=== PATIENT | male | born 1965 | race Caucasian/White ===

== ENCOUNTER → 2019-08-15 | Outpatient (CLI) | payer OTHER | END | disposition home or self-care (01) | LOC: LABWHC1 11:19 | PROVIDERS: ATTEND Physical Medicine & Rehabilitation | DX: M51.17 Intervertebral disc disorders with radiculopathy, lumbosacral region (principal); M47.817 Spondylosis without myelopathy or radiculopathy, lumbosacral region; M75.41 Impingement syndrome of right shoulder; M19.011 Primary osteoarthritis, right shoulder; M19.041 Primary osteoarthritis, right hand; M19.042 Primary osteoarthritis, left hand; G56.23 Lesion of ulnar nerve, bilateral upper limbs; M25.562 Pain in left knee; M25.511 Pain in right shoulder; M25.362 Other instability, left knee; M54.5 Low back pain; R20.2 Paresthesia of skin | CPT/HCPCS: 36415; 84402; 84403 ==

== ENCOUNTER → 2021-10-28 | Outpatient (CLI) | payer OTHER ==
[2021-10-28 12:28] LABS: Appearance,Urine Clear (Clear); Bilirubin,Urine Negative (Negative); Blood,Urine Negative (Negative); Color,Urine Yellow; Glucose,Urine (UA) Negative (Negative); Ketones,Urine Negative (Negative); Leukocyte Esterase,Urine Negative (Negative); Nitrite,Urine Negative (Negative); Protein,Urine Negative (Negative); Specific Gravity,Urine 1.013 (1.001-1.035); Urobilinogen,Urine <2.0 mg/dL (<2.0)
[2021-10-28 12:34] LABS: Basophils % (A) 1 %; Eosinophils # (A) 0.1 k/uL (0-0.7); Eosinophils % (A) 2 %; HCT 44.6 % (39.0-53.0); HGB 15.1 gm/dL (13.0-17.5); Lymphocytes # (A) 1.7 k/uL (1.0-4.8); Lymphocytes % (A) 31 %; MCHC 33.8 g/dL (31.0-37.0); MCV 97.7 fL (80.0-100.0); Mean Platelet Volume 7.7; Monocytes # (A) 0.4 k/uL (0-1.0); Monocytes % (A) 7 %; Neutrophils % (A) 57 %; Platelet Count 254 k/uL (150-450); RBC 4.57 m/uL (4.30-5.90); WBC 5.3 k/uL (3.8-10.6)
[2021-10-28 12:51] LABS: ALT 17 U/L (4-49); AST 19 U/L (17-59); African American GFR (CKD) >90 (>60 ml/min/1.73 sqM); Albumin 4.4 g/dL (3.5-5.0); Alkaline Phosphatase 57 U/L (38-126); Anion Gap 9 mmol/L; Blood Urea Nitrogen 12 mg/dL (9-20); Carbon Dioxide 30 mmol/L (22-30); Chloride 102 mmol/L (98-107); Glucose 103 mg/dL (74-99); Non-African American GFR(CKD) >90 (>60 ml/min/1.73 sqM); Potassium 4.2 mmol/L (3.5-5.1); Prothrombin Time 10.4 sec (9.0-12.0); Sodium 141 mmol/L (137-145); Total Bilirubin 0.4 mg/dL (0.2-1.3); Total Protein 7.1 g/dL (6.3-8.2)
== END | disposition home or self-care (01) ==
LOC: LABWHC1 11:41
PROVIDERS: ATTEND Orthopaedic Surgery Orthopaedic Surgery of the Spine
DX: Z01.812 Encounter for preprocedural laboratory examination (principal); M51.36 Other intervertebral disc degeneration, lumbar region; M48.00 Spinal stenosis, site unspecified
CPT/HCPCS: 80053; 81003; 85025; 85610; 85730; 87070; 93005

== ENCOUNTER → 2021-10-29 | Outpatient (CLI) | payer OTHER ==
--- NOTE | 2021-10-29 09:53 | XR ---
EXAMINATION TYPE: XR chest 2V DATE OF EXAM: 10/29/2021 COMPARISON: NONE TECHNIQUE: PA and lateral views submitted. HISTORY: Presurgical FINDINGS: The lungs are clear and there is no pneumothorax, pleural effusion, or focal pneumonia. Heart size normal. No overt failure. IMPRESSION: 1. No acute process.
== END | disposition home or self-care (01) ==
LOC: RADXRMAIN 08:03
PROVIDERS: ATTEND Orthopaedic Surgery Orthopaedic Surgery of the Spine
DX: Z01.818 Encounter for other preprocedural examination (principal)
CPT/HCPCS: 71046

== ENCOUNTER 2021-11-04 07:45 | Observation (INO) | payer OTHER ==
[2021-10-29 15:28] VITALS: BMI 23.6
[~2021-11-04 07:45] MED LIST: DEXAMETHASONE SOD PHOSPHATE 4 MG/ML 1 ML VIAL IV ONE; ONDANSETRON 4 MG/2 ML VIAL IVP ONE; ceFAZolin 1,000 MG in SODIUM CHLORIDE 0.9% IRRIGATIO 1,000 ML IRRIGATION PRN
[2021-11-04] MEDS ORDERED: LIDOCAINE 1% (10MG/ML) FOR IV START INTRADERMA ONE (08:26)
[2021-11-04] MEDS: LACTATED RINGERS 1,000 ML IV SCH ×2 (08:26→18:53)
[2021-11-04] MEDS ORDERED: ROCURONIUM 10 MG/ML (5 ML VIAL) IV ONE (09:55)
[2021-11-04] MEDS ORDERED: PROPOFOL 10 MG/ML 20 ML VIAL IV ONE (09:55)
[2021-11-04] MEDS ORDERED: MIDAZOLAM 2 MG/2 ML VIAL ONE (09:55)
[2021-11-04] MEDS ORDERED: PHENYLEPHRINE-0.9% NACL SYG 1,000 MCG/10 ML SYRINGE ONE (09:55)
[2021-11-04] MEDS ORDERED: SUCCINYLCHOLINE CHLORIDE 100 MG/5 ML SYR IV ONE (09:55)
[2021-11-04] MEDS ORDERED: HYDROmorphone (PF) 1 MG/ML ONE (09:55)
[2021-11-04] MEDS ORDERED: LIDOCAINE 1% INJ 10MG/ML (20 ML MDV) ONE (09:55)
[2021-11-04] MEDS ORDERED: fentaNYL (PF) 50 MCG/ML 2 ML AMP ONE (09:55)
[2021-11-04] MEDS ORDERED: THROMBIN (BOVINE) 5,000 UNIT VIAL TOPICAL ONE (09:59)
[2021-11-04] MEDS ORDERED: LIDOCAINE 0.5%-EPI 1:200,000 50 ML VIAL SQ ONE (09:59)
[2021-11-04] MEDS ORDERED: GELATIN SPONGE,ABSORB (LARGE) 1 EACH SPONGE TOPICAL ONE (09:59)
[2021-11-04] MEDS ORDERED: LACTATED RINGERS 1,000 ML IV ONE (10:35)
[2021-11-04] MEDS ORDERED: BENZOCAINE/MENTHOL LOZENG 1 EACH LOZENGE MUCOUS MEM PRN (12:51)
[2021-11-04] MEDS ORDERED: HYDROcodone/APAP 5-325MG 1 EACH TAB PO PRN (12:51)
[2021-11-04] MEDS ORDERED: HYDROmorphone 0.5 MG/0.5 ML SYRINGE IVP PRN (12:51)
[2021-11-04] MEDS ORDERED: ONDANSETRON 4 MG/2 ML VIAL IVP PRN (12:51)
[2021-11-04] MEDS: HYDROmorphone 0.5 MG/0.5 ML SYRINGE IVP PRN ×4 (13:02→14:00)
--- NOTE | 2021-11-04 13:03 | P.OP ---
Date of Procedure: 11/04/21 Preoperative Diagnosis: Degenerative disc disease L5-S1, history of laminectomy decompression L5-S1 with discectomy, recurrent stenosis L5-S1, low back pain, lower extremity radiculopathy Postoperative Diagnosis: Same Anesthesia: GETA Pathology: none sent Condition: stable Disposition: PACU Description of Procedure: DESCRIPTION OF PROCEDURE(S): BRIEF OPERATIVE NOTE Preoperative Diagnosis: Degenerative disc disease L5-S1, history of laminectomy decompression L5-S1 with discectomy, recurrent stenosis L5-S1, low back pain, lower extremity radiculopathy Postoperative Diagnosis: SameDegenerative disc disease L5-S1, history of laminectomy decompression L5-S1 with discectomy, recurrent stenosis L5-S1, low back pain, lower extremity radiculopathy Procedure: Revision Laminectomy and decompression L5-S1 Computer CT navigation aided Minimally invasive Posterior lateral decompression and facet fusion L5-S1 Minimally invasive Transforaminal lumbar interbody fusion for a 360 fusion L5-S1 Discectomy for decompression L5-S1 Placement of interbody graft L5-S1 Use of computer navigation for fusion Local autogenous bone grafting Aspiration of bone marrow from the vertebral body pedicle L5 on the right Use of bone graft extenders Surgeon: Dr. Cox Plant Breeder Scientist: Rafal BOBO who is present throughout the entire the case persistence during positioning, dissection, exposure, visualization, and all crucial elements of the case as well as closure. Anesthesia: General anesthesia per Dr. Dr. Montes De Oca Estimated blood loss: Approximately 100 mL Complications: None apparent Components implanted: K2M minimally invasive [place] pedicle screw system withscrews measuring 6.5 mm in diameter to rods one Clear interbody cage with 10 mL of osteo amp bio4 bone graft substitute and 30 mL of the BX bone fibers to supplement the local autogenous bone graft and bone marrow aspirate Disposition: To recovery room in good stable condition. OPERATIVE INDICATIONS The patient has had severe issues at their lower extremity in her lower back over the past year with significant worsening over the past several months. Over the past few months the patient had pain at their back and their lower extremities. The patient is having severe radicular symptoms at their lower extremity with weakness. The patient is having significant pain in their back. They are unable to obtain any comfort. In the past the patient had undergone a laminectomy with discectomy and decompression almost 10 years ago and had excellent results with that in terms of his lower extremities. He did very well over most of the decade but started having worsening of his back and his lower extremities and was found have advanced collapse and progressive height loss at L5-S1 with some recurrent stenosis on the neural foramen at L5-S1 bilaterally. He is having significant pain in his lower extremities worse on the right and left. We did aggressive conservative treatment with medications therapy and interventional pain management however thery were not having any relief. The patient also showed evidence of a listhesis with some dynamic instability. The patient has been through conservative treatment. We discussed various treatment options including surgery, and the patient wishes to proceed with surgery We discussed the risk, patient's alternatives and benefits of surgery including but not limited to, risk of bleeding risk of infection, risk of need for further surgery, risk of decreased, loss of motion, muscle function, malunion nonunion, hardware failure, nerve damage, paralysis, heart attack, blindness and . They understood issues with the current pandemic and the possibility of exposure. OPERATIVE SUMMARY After discussing all the risks, patient alternatives and benefits at length, the patient elected to proceed with surgical intervention, signed informed consent, and presented for their procedure. The patient was seen and examined in the preoperative holding area and the surgical site was marked. The patient was given antibiotics and brought to the operating room. The patient was sedated and intubated by anesthesia in standard fashion. The patient was positioned on to the operating room table in a prone position on the appropriate frame which was well-padded and well molded. We were careful to pad any bony prominences and pressure points. We were careful to maintain the patient's cervical spine and good neutral alignment and position throughout. The patient was prepped and draped in a normal standard fashion. An appropriate timeout and keystone protocol performed. We were able to proceed with the surgery. The local wound area was infiltrated with local anesthetic. Over the right iliac crest I was able to make small stab incisions and establish a guidepin screw fixation to the iliac crest 2 on the right. I was able place the computer referencing device over the guidepins to establish an appropriate reference point for the Ziem CT navigation. We then were able to place patient in an appropriate drape and do a navigation spin for visualization and 3-D reconstruction of the lumbar spine. I was able utilize C-arm guidance and navigation to establish appropriate position over the pedicles bilaterally at the appropriate levels . With the appropriate levels of L5 and S1 confirmed was able to make small incisions over the appropriate pedicle sites bilaterally. Utilizing the computer navigation device I was able to establish bony landmarks at the right iliac crest for a bony reference point for the navigation device. I was able to establish a Jamshidi needle over the lateral aspect of the pedicle and advanced the trocar into the pedicle being careful not to breech superiorly inferiorly medially or laterally using computer navigation device. Position was confirmed regularly with AP and lateral images on C-arm and with the computer navigation device at the appropriate levels bilaterally. I was able to establish the trocar into the pedicle appropriately into the posterior aspect of the vertebral body bilaterally at the appropriate levels at L5-S1 bilaterally. This was done at each of the pedicle positions and each of the vertebrae. At the superior vertebrae of L5 on the right I was able to take approximately 25 mL of bone aspiration for use later in the case to supplement the allograft and autograft bone. I was able place the guidewire into the trocar and into the vertebral body appropriately under C-arm guidance. Dissection was taken down over the wire to the appropriate starting position for the screw placed. The appropriate length screw was chosen, threaded over the guidewire and screwed appropriately into the pedicle and vertebral body under C-arm guidance in excellent alignment and position with good bony purchase. This is done at each of the screw sites at the appropriate levels of L5-S1. With the screws intact I extended the incision to connect the screw hole sites on the most symptomatic side on the right. I dissected down to establish access over the pars and lamina to the base of the spinous process. I was able to expose the facet joint. The capsule the facet was taken down and showed some facet arthrosis at the joint. I was able to use a combination of curettes and Kerrison rongeurs and a high-speed drill to take down the facet joint and do a revision laminectomy and facetectomy. I was able get excellent foraminal decompression and central decompression with undermining across midline to perform a laminectomy centrally and contralaterally. I was able get good revision central decompression. The ligamentum flavum was taken down to further decompress centrally and at bilateral neural foramen. I was able to expose the disc space and visualize the traversing nerve root. Note was made of some disc protrusion and disc herniation that was abutting the traversing nerve root at the level causing further compression of the nerve root. I was able to establish a annulotomy at the appropriate level protecting soft tissue and neural structures. Note was made of some disc desiccation at the disc. I performed a complete discectomy with accommodation of curettes and rasps and scrapers. I was able get good endplate preparation at the disc space. I sized for the appropriate size interbody spacer protecting the soft tissue and neural structures. The wound was copiously irrigated and suctioned dry. There is no evidence of any dural tear or leak. I was able to pack the disc space with local autogenous bone graft as well as a small amount of bone graft which was also placed into the interbody cage itself. Protecting the soft tissue structures and neural structures I was able place the interbody cage in good alignment and good position with good fit and fill at the interbody space. Position was confirmed with C-arm guidance. Good hemostasis maintained. There is no evidence of any dural tear or leak. The wound was irrigated and suctioned dry. With the hardware intact, intraoperative C-arm imaging was again taken which showed good alignment and position of the hardware at the appropriate levels. We were then able to measure, contour and place the rods and appropriate h ardware bilaterally. I was able to place capcrews, tighten them down, and torque them with the torque screwdriver appropriately. With this intact I was able to place the local autogenous bone graft with additional bone graft enhancer as necessary into the posterior lateral gutters over the decorticated transverse processes and facet joints on the contralateral side. The remainder of the bone graft was placed over the facet joint on the contralateral side after taking down the facet joint capsule. With the bone graft intact, a stable construct, and good decompression at the appropriate levels, we were able to proceed with closure. Good hemostasis was maintained. There is no evidence of dural tear or leak. The fascia was closed for a watertight closure. he subcuticular tissue was closed with absorbable suture. The wound was cleaned and dried and dressed with the appropriate dressing. The drapes were broken down. The patient was gently rolled back onto their hospital bed being careful to maintain their cervical spine and good neutral alignment and position. They were woken up by anesthesia, extubated, and brought to the recovery room in good stable condition. The patient will be admitted to the hospital for appropriate postoperative care, medical management and monitoring. We will continue to follow them closely about the postoperative course.
--- NOTE | 2021-11-04 13:19 | FL ---
Fluoroscopy HISTORY: Minimally Invasive lumbar fusion 16 seconds fluoroscopy time supplied to the referring clinician. 5 intraoperative C-arm images docum ent the procedure. See dictated report from orthopedic surgery.
[2021-11-04] MEDS ORDERED: fentaNYL (PF) 50 MCG/ML 2 ML AMP IVP ONE ×2 (13:30→13:40)
[2021-11-04] MEDS: SODIUM CHLORIDE 0.9% 1,000 ML IV SCH (14:15)
--- NOTE | 2021-11-04 16:37 | P.CONS ---
History of Present Illness - History of Present Illness Patient is a pleasant 56-year-old male is admitted for elective L5-S1 discecto my, posterior lateral decompression, laminectomy. Patient underwent that surgery patient is still having severe pain patient denied any fever chills nausea vomiting abdominal pain dysuria. She did not pass gas yet sluggish bowel sounds. REVIEW OF SYSTEMS: CONSTITUTIONAL: No fever, no malaise, no fatigue. HEENT: No recent visual problems or hearing problems. Denied any sore throat. CARDIOVASCULAR: No chest pain, orthopnea, PND, no palpitations, no syncope. PULMONARY: No shortness of breath, no cough, no hemoptysis. GASTROINTESTINAL: No diarrhea, no nausea, no vomiting, no abdominal pain. NEUROLOGICAL: No headaches, no weakness, no numbness. HEMATOLOGICAL: Denies any bleeding or petechiae. GENITOURINARY: Denies any burning micturition, frequency, or urgency. MUSCULOSKELETAL/RHEUMATOLOGICAL: Severe back pain post surgery ENDOCRINE: Denies any polyuria or polydipsia. The rest of the 14-point review of systems is negative. PHYSICAL EXAMINATION: GENERAL: The patient is alert and oriented x3, not in any acute distress. Well developed, well nourished. HEENT: Pupils are round and equally reacting to light. EOMI. No scleral icterus. No conjunctival pallor. Normocephalic, atraumatic. No pharyngeal erythema. No thyromegaly. CARDIOVASCULAR: S1 and S2 present. No murmurs, rubs, or gallops. PULMONARY: Chest is clear to auscultation, no wheezing or crackles. ABDOMEN: Soft, nontender, nondistended, normoactive bowel sounds. No palpable organomegaly. MUSCULOSKELETAL: Deferred to orthopedic surgery EXTREMITIES: No cyanosis, clubbing, or pedal edema. NEUROLOGICAL: Gross neurological examination did not reveal any focal deficits. SKIN: No rashes. Assessment and plan -Back pain: Status post laminectomy and continue with Decadron for inflammation and opiate pain medications for severe pain. -Ordered incentive spirometry to prevent atelectasis DVT prophylaxis: As per primary service Past Medical History Past Medical History: Chest Pain / Angina Additional Past Medical History / Comment(s): BACK PAIN., STATES CHEST PAIN LAST NIGHT-HE THOUGHT IT MIGHT HAVE BEEN HEARTBURN. History of Any Multi-Drug Resistant Organisms: None Reported Past Surgical History: Back Surgery, Hernia Repair, Orthopedic Surgery Additional Past Surgical History / Comment(s): ARTHROSCOPIC KNEE SURGERY, FACIAL SURGERY Past Anesthesia/Blood Transfusion Reactions: No Reported Reaction Past Psychological History: No Psychological Hx Reported Smoking Status: Former smoker, Vaper Past Alcohol Use History: None Reported Additional Past Alcohol Use History / Comment(s): CURRENTLY VAPES. QUIT CIGARETTES 5-8 YEARS AGO, HX OF 1 1/2 PPD, STARTED SMOKING AGE 18. Past Drug Use History: None Reported - Past Family History Father Family Medical History: Cancer Medications and Allergies Home Medications Medication Instructions Recorded Confirmed Type Acetaminophen with Codeine 1 tab PO Q6H PRN 10/29/21 11/04/21 History [Tylenol w/Codeine #4 Tablet] Vitamin B-12 (Unknown Dose) 1 tab PO DAILY 10/29/21 History Vitamin C (Unknown Dose) 1 tab PO DAILY 10/29/21 History HYDROcodone/APAP 5-325MG [[place] 5] 1 each PO Q4HR PRN #42 tab 11/04/21 Rx Allergies Allergy/AdvReac Type Severity Reaction Status Date / Time aspirin Allergy vision Verified 11/04/21 08:20 changes Physical Exam Vitals: Vital Signs Temp Pulse Resp BP Pulse Ox 11/04/21 16:00 89 115/68 94 L 11/04/21 15:45 92 117/69 95 11/04/21 15:30 90 106/70 94 L 11/04/21 15:15 90 114/76 90 L 11/04/21 15:00 91 109/67 90 L 11/04/21 14:45 89 123/79 95 11/04/21 14:30 98 F 84 16 134/72 96 11/04/21 14:13 97.3 F L 88 15 121/66 95 11/04/21 13:55 97.2 F L 85 15 121/66 95 11/04/21 13:35 97.2 F L 72 15 132/74 97 11/04/21 13:20 81 19 111/75 99 11/04/21 13:04 96.8 F L 78 14 127/71 99 11/04/21 12:49 96.8 F L 84 15 100 11/04/21 08:23 96.4 F L 74 16 124/61 97 Intake and Output 11/04/21 11/04/21 11/04/21 06:59 14:59 22:59 Intake Total 2049 Output Total 250 Balance 1800 Intake: IV 2049 Output: Urine 200 Estimated Blood Loss 50 Other: Weight 69 kg
[2021-11-04] MEDS: ACETAMINOPHEN TAB 325 MG TAB PO SCH ×2 (17:21→23:25)
[2021-11-04] MEDS: HYDROcodone/APAP 10-325MG 1 EACH TAB PO PRN ×2 (17:22→21:24)
[2021-11-04] MEDS: HYDROmorphone 1 MG/ML 1 ML SYRINGE IVP PRN ×2 (18:49→23:25)
[2021-11-04] MEDS: CYCLOBENZAPRINE 10 MG TAB PO PRN (20:53)
[2021-11-05] MEDS: SODIUM CHLORIDE 0.9% 1,000 ML IV SCH ×2 (02:15→15:46)
[2021-11-05] MEDS: HYDROcodone/APAP 10-325MG 1 EACH TAB PO PRN ×4 (02:16→16:48)
[2021-11-05] MEDS: HYDROmorphone 1 MG/ML 1 ML SYRINGE IVP PRN ×7 (04:15→22:54)
[2021-11-05] MEDS: ACETAMINOPHEN TAB 325 MG TAB PO SCH ×3 (06:10→18:17)
[2021-11-05] MEDS: diazePAM 5 MG TAB PO PRN ×2 (06:26→16:47)
[2021-11-05] MEDS: SENNOSIDES-DOCUSATE SODIUM 1 EACH TAB PO SCH (07:02)
--- NOTE | 2021-11-05 08:42 | P.PN ---
Progress Note - Text Progress Note Date: 11/05/21 Postoperative day #1 Patient is seen and examined today at bedside. The patient has some pain around the surgical site as expected, and is been a bit difficult to control his pain overnight and this morning. We have increased his pain medication and added some muscle relaxation. He has not yet gotten up with therapy. He denies any new changes in his lower extremity. Denies any chest pain shortness breath or abdominal pain. Physical Exam Afebrile with stable vital signs Abdomen is soft nontender. Chest has good excursion deep and space expiration The incision site is clean dry and intact. No erythema there is no purulence. There is no drainage on the dressing. There is no significant swelling. Extremities have not had neurologic change from prior to surgery. He has sustained dorsal flexion plantar flexion and EHL intact. Thighs and calves soft nontender. Calves and thighs were soft nontender without evidence of DVT. Assessment/Plan Postoperative day #1 status post minimally invasive decompression fusion with revision decompression L5-S1 for his recurrent stenosis with degenerative disc disease and lower extremity and low back pain Patient is progressing somewhat slowly on this first night from the surgery. We'll try to get a better control of his pain medication needs so that he can better mobilize. I think that he has significant spasm at his lower back from the surgery and he has most relaxation onboard. I think that he should make some progress with continued medical management. Once he is stable with pain control and oral medication we'll able to bear for discharge home. We will continue to increase the patient's mobilization with therapy. We will continue pain control with oral or IV medications. We'll continue to follow patient closely.
[2021-11-05] MEDS: CYCLOBENZAPRINE 10 MG TAB PO PRN ×2 (10:09→19:58)
[2021-11-05 10:24] LABS: Basophils # (A) 0.03 X 10*3/uL (0.00-0.10); Basophils % (A) 0.3 %; Eosinophils # (A) 0.07 X 10*3/uL (0.04-0.35); Eosinophils % (A) 0.8 %; HCT 39.1 % (39.6-50.0); Lymphocytes # (A) 1.35 X 10*3/uL (0.90-5.00); Lymphocytes % (A) 14.6 %; MCH 32.4 pg (27.0-32.0); MCHC 33.2 g/dL (32.0-37.0); MCV 97.5 fL (80.0-97.0); Mean Platelet Volume 10.7 fL (9.5-12.2); Monocytes # (A) 1.02 X 10*3/uL (0.20-1.00); Neutrophils # (A) 6.77 X 10*3/uL (1.80-7.70); Neutrophils % (A) 73.1 %; Platelet Count 207 X 10*3/uL (140-440); RBC 4.01 X 10*6/uL (4.40-5.60); RDW 12.2 % (11.5-14.5); WBC 9.26 X 10*3/uL (4.50-10.00)
--- NOTE | 2021-11-05 10:36 | P.PN ---
Subjective Patient is a pleasant 56-year-old male is admitted for elective L5-S1 discectomy, posterior lateral decompression, laminectomy. Patient underwent t hat surgery patient is still having severe pain patient denied any fever chills nausea vomiting abdominal pain dysuria. She did not pass gas yet sluggish bowel sounds. 11/05/2021 Patient has a low-grade fever we'll order incentive spirometry patient denied any cough. The patient is passing gas still having significant pain with the movement. Constitutional: Denied any fatigue denied any fever. Cardio vascular: denied any chest pain, palpitations Gastrointestinal denied any nausea vomiting Pulmonary: Denied any shortness of breath cough Neurologic denied any new focal deficits All inpatient medications were reviewed and appropriate changes in these medications as dictated in the interval history and assessment and plan. PHYSICAL EXAMINATION: GENERAL: The patient is alert and oriented x3, not in any acute distress. Well developed, well nourished. HEENT: Pupils are round and equally reacting to light. EOMI. No scleral icterus. No conjunctival pallor. Normocephalic, atraumatic. No pharyngeal erythema. No thyromegaly. CARDIOVASCULAR: S1 and S2 present. No murmurs, rubs, or gallops. PULMONARY: Chest is clear to auscultation, no wheezing or crackles. ABDOMEN: Soft, nontender, nondistended, normoactive bowel sounds. No palpable organomegaly. MUSCULOSKELETAL: Deferred to orthopedic surgery EXTREMITIES: No cyanosis, clubbing, or pedal edema. NEUROLOGICAL: Gross neurological examination did not reveal any focal deficits. SKIN: No rashes. Assessment and plan -Back pain: Status post laminectomy and continue with Decadron for inflammation and opiate pain medications for severe pain. -Ordered incentive spirometry to prevent atelectasis From my low-grade fever probably secondary to atelectasis we'll order a basic volley profile and CBC for tomorrow DVT prophylaxis: As per primary service Objective - Vital Signs Vital signs: Vital Signs Temp 99.9 F H 11/05/21 08:00 Pulse 83 11/05/21 08:00 Resp 16 11/05/21 08:00 BP 95/54 11/05/21 08:00 Pulse Ox 95 11/05/21 08:00 Intake & Output 11/04/21 11/05/21 11/05/21 18:59 06:59 18:59 Intake Total 2286 236 Output Total 350 3800 Balance 1935 -380 236 Weight 69 kg Intake: IV 2049 Oral 236 236 Output: Urine 300 3800 Estimated Blood Loss 50 Other: Voiding Method Indwelling Catheter Indwelling Catheter - Labs CBC & Chem 7: 11/05/21 04:39 Labs: Abnormal Lab Results - Last 24 Hours (Table) 11/05/21 Range/Units 04:39 RBC 4.01 L (4.40-5.60) X 10*6/uL Hct 39.1 L (39.6-50.0) % MCV 97.5 H (80.0-97.0) fL MCH 32.4 H (27.0-32.0) pg Monocytes # 1.02 H (0.20-1.00) X 10*3/uL
[2021-11-05 10:56] LABS: African American GFR (CKD) 118.2 (60.0-200.0); Anion Gap 10.3 mmol/L (10.00-18.00); BUN/Creat Ratio 15.26 Ratio (12.00-20.00); Blood Urea Nitrogen 11.6 mg/dL (9.0-27.0); Calcium 7.8 mg/dL (8.7-10.3); Carbon Dioxide 23.4 mmol/L (20.0-27.5)
[2021-11-05] MEDS: LACTATED RINGERS 1,000 ML IV SCH (22:52)
[2021-11-06] MEDS: ACETAMINOPHEN TAB 325 MG TAB PO SCH ×2 (00:20→07:51)
[2021-11-06] MEDS: HYDROmorphone 1 MG/ML 1 ML SYRINGE IVP PRN (03:28)
[2021-11-06] MEDS: HYDROcodone/APAP 10-325MG 1 EACH TAB PO PRN ×3 (07:51→14:39)
[2021-11-06] MEDS: SODIUM CHLORIDE 0.9% 1,000 ML IV SCH (07:51)
[2021-11-06] MEDS: CYCLOBENZAPRINE 10 MG TAB PO PRN (07:51)
[2021-11-06] MEDS: SENNOSIDES-DOCUSATE SODIUM 1 EACH TAB PO SCH (07:51)
[2021-11-06 09:25] LABS: HCT 39.5 % (39.6-50.0); HGB 12.9 g/dL (13.0-17.0); MCH 31.9 pg (27.0-32.0); MCHC 32.7 g/dL (32.0-37.0); MCV 97.5 fL (80.0-97.0); Mean Platelet Volume 11.1 fL (9.5-12.2); Platelet Count 189 X 10*3/uL (140-440); RBC 4.05 X 10*6/uL (4.40-5.60); RDW 12.1 % (11.5-14.5); WBC 12.14 X 10*3/uL (4.50-10.00)
[2021-11-06] MEDS ORDERED: HYDROcodone/APAP 10-325MG 1 EACH TAB PO PRN (09:41)
[2021-11-06] MEDS ORDERED: ACETAMINOPHEN TAB 325 MG TAB PO PRN (09:47)
[2021-11-06 10:12] LABS: African American GFR (CKD) 122.3 (60.0-200.0); Anion Gap 12.8 mmol/L (10.00-18.00); BUN/Creat Ratio 13.86 Ratio (12.00-20.00); Blood Urea Nitrogen 9.7 mg/dL (9.0-27.0); Calcium 8.3 mg/dL (8.7-10.3); Carbon Dioxide 23.2 mmol/L (20.0-27.5); Non-African American GFR(CKD) 105.5 (60.0-200.0); Potassium 3.8 mmol/L (3.5-5.5)
[2021-11-06] MEDS: diazePAM 5 MG TAB PO PRN (11:09)
--- NOTE | 2021-11-06 12:45 | P.PN ---
Subjective Patient is a pleasant 56-year-old male is admitted for elective L5-S1 discectomy, posterior lateral decompression, laminectomy. Patient underwent t hat surgery patient is still having severe pain patient denied any fever chills nausea vomiting abdominal pain dysuria. She did not pass gas yet sluggish bowel sounds. 11/05/2021 Patient has a low-grade fever we'll order incentive spirometry patient denied any cough. The patient is passing gas still having significant pain with the movement. 11/06/2021 Patient overall clinically doing well patient doesn't have any more fevers patient does have leukocytosis which is reactive in nature. Patient is being discharged today patient had a bowel movement today. Patient is medically stable to be discharged. Leukocytosis: Reactive secondary to surgery Constitutional: Denied any fatigue denied any fever. Cardio vascular: denied any chest pain, palpitations Gastrointestinal denied any nausea vomiting Pulmonary: Denied any shortness of breath cough Neurologic denied any new focal deficits All inpatient medications were reviewed and appropriate changes in these medications as dictated in the interval history and assessment and plan. PHYSICAL EXAMINATION: GENERAL: The patient is alert and oriented x3, not in any acute distress. Well developed, well nourished. HEENT: Pupils are round and equally reacting to light. EOMI. No scleral icterus. No conjunctival pallor. Normocephalic, atraumatic. No pharyngeal erythema. No thyromegaly. CARDIOVASCULAR: S1 and S2 present. No murmurs, rubs, or gallops. PULMONARY: Chest is clear to auscultation, no wheezing or crackles. ABDOMEN: Soft, nontender, nondistended, normoactive bowel sounds. No palpable organomegaly. MUSCULOSKELETAL: Deferred to orthopedic surgery EXTREMITIES: No cyanosis, clubbing, or pedal edema. NEUROLOGICAL: Gross neurological examination did not reveal any focal deficits. SKIN: No rashes. Assessment and plan -Back pain: Status post laminectomy being discharged - incentive spirometry to prevent atelectasis Leulocytosis: reactive in nature DVT prophylaxis: As per primary service Objective - Vital Signs Vital signs: Vital Signs Temp 98.3 F 11/06/21 07:26 Pulse 98 11/06/21 07:26 Resp 12 11/06/21 07:26 BP 116/78 11/06/21 07:26 Pulse Ox 94 L 11/06/21 07:26 Intake & Output 11/05/21 11/06/21 11/06/21 18:59 06:59 18:59 Intake Total 472 Output Total 700 200 Balance 472 -700 -200 Intake: Oral 472 Output: Urine 700 200 Other: Voiding Method Indwelling Catheter Urinal # Voids 1 # Bowel Movements 1 - Labs CBC & Chem 7: 11/06/21 04:48 11/06/21 04:48 Labs: Abnormal Lab Results - Last 24 Hours (Table) 11/06/21 11/06/21 Range/Units 04:48 04:48 WBC 12.14 H (4.50-10.00) X 10*3/uL RBC 4.05 L (4.40-5.60) X 10*6/uL Hgb 12.9 L (13.0-17.0) g/dL Hct 39.5 L (39.6-50.0) % MCV 97.5 H (80.0-97.0) fL Glucose 124 H (70-110) mg/dL Calcium 8.3 L (8.7-10.3) mg/dL
[2021-11-06] MEDS: LACTATED RINGERS 1,000 ML IV SCH (12:57)
[2021-11-06 13:51] VITALS: BP 126/75; PULSE 111; RESP 18; TEMP 98.5
[2021-11-06] MEDS ORDERED: DOCUSATE 100 MG CAP PO SCH (21:00)
== END 2021-11-06 14:48 | disposition home health service (06) ==
LOC: OR 07:45 → 4SSUR 12:35 → OR 23:54 → 4SSUR 23:54
PROVIDERS: ADMIT Orthopaedic Surgery Orthopaedic Surgery of the Spine; ATTEND Orthopaedic Surgery Orthopaedic Surgery of the Spine
DX: M96.1 Postlaminectomy syndrome, not elsewhere classified (principal); M51.17 Intervertebral disc disorders with radiculopathy, lumbosacral region; M48.07 Spinal stenosis, lumbosacral region; M47.27 Other spondylosis with radiculopathy, lumbosacral region; R50.82 Postprocedural fever; D72.829 Elevated white blood cell count, unspecified; M19.042 Primary osteoarthritis, left hand; M19.041 Primary osteoarthritis, right hand; M19.011 Primary osteoarthritis, right shoulder; M75.41 Impingement syndrome of right shoulder; M25.362 Other instability, left knee; M25.562 Pain in left knee; G56.21 Lesion of ulnar nerve, right upper limb; G56.22 Lesion of ulnar nerve, left upper limb; Z88.6 Allergy status to analgesic agent; Z98.890 Other specified postprocedural states; Z97.3 Presence of spectacles and contact lenses; Z87.891 Personal history of nicotine dependence; Z80.9 Family history of malignant neoplasm, unspecified
CPT/HCPCS: 97161; 86900; 86901; 80048 ×2; 85025; 85027; 86850; 87635; 72100; 22630; 22853; 20930; 20936; 22840; G0378 ×2; C1713; C1762; J2250; J0690 ×3; J2405; J2001; J3010; J1170 ×4; J2370; J0330; J2704

== ENCOUNTER → 2024-05-22 | Outpatient (CLI) | payer BC ==
--- NOTE | 2024-05-22 17:29 | US ---
EXAMINATION TYPE: US scrotum with doppler. Grayscale and color Doppler Duplex imaging performed of t carleen scrotum. DATE OF EXAM: 05/22/2024 COMPARISON: NONE CLINICAL INDICATION: Male, 58 years old with history of N50.89 RIGHT SCROTAL LESION; Pt states lump i n right scrotum x at least 1 week. No pain or swelling EXAM MEASUREMENTS: TESTICLES: Right Testicle: 3.9 x 2.0 x 1.4 cm Left Testicle: 3.5 x 3.1 x 1.6 cm EPIDIDYMIS HEAD: Right Epididymis: 0.7 cm Left Epididymis: 0.8 cm Doppler performed to assess for testicular vascularity; good bilateral color flow and waveforms are s een. There is no evidence of testicular torsion. Presence of hydroceles: no Presence of varicoceles: no Heterogeneous area seen at lateral inferior portion of right testicle. There are no defined borders. There is vascularity seen inside. IMPRESSION: 1. Heterogenous tissue without organizing fluid collection or mass visualized. Consider MRI as clini julio warranted. 2. No intratesticular mass identified. 3. Appropriate arterial and venous spectral waveforms to the testes.
== END | disposition home or self-care (01) ==
LOC: RADUSWWP 16:20
PROVIDERS: ATTEND Family Medicine
DX: N50.89 Other specified disorders of the male genital organs (principal)
CPT/HCPCS: 76870; 93975

== ENCOUNTER → 2024-06-19 | Outpatient (CLI) | payer BC ==
--- NOTE | 2024-07-11 13:33 | MR ---
Patient: Jarocho Conroy J Ordering Physician: Evie Ayala ID: [id number] Phone, Pager: Phone: Pager: : [phone] Age/Gender: 58Y, M Primary Location: [id number] Procedure: US scrotum with doppl er Study Date: 05/22/2024 4:27:05 PM EXAMINATION TYPE: MR pelvis w con DATE OF EXAM: 07/04/2024 6:48 AM CLINICAL INDICATION: Right scrotal lesion COMPARISON: 05/22/2024 ultrasound TECHNIQUE: Triplane multisequence imaging was performed of the pelvis. IV Contrast: 7 cc Gadavist FINDINGS: Prostate: Unremarkable. Seminal vesicle's: Unremarkable. Testes: Abnormal appearance of the right testis which correlates with a heterogenous appearance on pr ior ultrasound. Abnormally low or T1 and high T2 signal within the right testis compared to the left. The left testis enhances homogenously with the right testis is an area that does not enhance likely correlating with the hypoechogenic area on prior ultrasound. Bladder: Unremarkable. Bowel: Unremarkable as visualized. Peritoneum: A small amount of free fluid in the pelvis. Lymph nodes: No evidence of adenopathy. Vasculature: Unremarkable. Musculoskeletal: Bone marrow signal is within normal signal intensity. Surgical changes to the lower spine with susceptibility artifact. Abdominal wall/soft tissues: Unremarkable. IMPRESSION: The right testis is somewhat heterogenous on postcontrast enhancement the geographic area of decrease d enhancement compared to the left testis. Unclear if this is sequela prior injury. Short-term follo w-up ultrasound in 3-6 months of the scrotum recommended to ensure stability. Underlying mass is felt to be less likely but not excluded at this time.
== END | disposition home or self-care (01) ==
LOC: RADMRIMAIN 18:00
PROVIDERS: ATTEND Family Medicine
DX: R93.813 Abnormal radiologic findings on diagnostic imaging of testicles, bilateral (principal)
CPT/HCPCS: 72197; A9585